=== PATIENT | female | born 1945 | race Caucasian/White ===

== ENCOUNTER → 2019-03-14 | Outpatient (CLI) | payer MEDICARE | END | disposition home or self-care (01) | LOC: CFH 08:43 | PROVIDERS: ATTEND Internal Medicine Cardiovascular Disease | DX: I08.1 Rheumatic disorders of both mitral and tricuspid valves (principal); E78.5 Hyperlipidemia, unspecified; Z86.73 Personal history of transient ischemic attack (TIA), and cerebral infarction without residual deficits | CPT/HCPCS: 93306 ==

== ENCOUNTER → 2020-07-29 | Outpatient (CLI) | payer MEDICARE | END | disposition home or self-care (01) | LOC: CFH 11:00 | PROVIDERS: ATTEND Nurse Practitioner | DX: D45 Polycythemia vera (principal) | CPT/HCPCS: 71046 ==

== ENCOUNTER 2020-09-21 07:06 | Inpatient (IN) | payer MEDICARE ==
[~2020-09-21] VITALS: Ht 170.2 cm; Wt 91.3 kg
--- NOTE | 2020-09-21 07:15 | NUR ---
PT BIBA FROM THE [facility] FOR C/O N/V WHEN SHE BOARDED THE PLANE. PT ALSO C/O SOB/ EPIGASTRIC PAIN THAT IS ACHING. PT STATES SHE WAS BOARDING THE PLANE TO [place] TO VISIT A FRIEND WHEN SHE STARTED TO FEEL NAUSEOUS AND VOMITING WITH EPIGASTRIC PAIN AND COULD NOT WALK. PT STATES SHE WAS IN [place] 1 WEEK AGO FOR A MONTH AND HAD A NEGATIVE COVID TEST. PT RECEIVED 4MG [employer]. PT CHANGED INTO GOWN, MONITORS IN PLACE. CALL LIGHT WITHIN REACH
--- NOTE | 2020-09-21 07:24 | NUR ---
PA AT BS FOR EVAL
[2020-09-21] MEDS ORDERED: ONDANSETRON 2MG/ML, 2ML ONE (07:29)
[2020-09-21] MEDS ORDERED: MORPHINE SULFATE 4 MG/ML, 1ML ONE (07:29)
[2020-09-21] MEDS ORDERED: ASPIRIN 81 MG TABLET CHEW ONE (07:29)
[2020-09-21] MEDS ORDERED: ONDANSETRON 2MG/ML, 2ML IVPush ONE (07:30)
[2020-09-21] MEDS ORDERED: ASPIRIN 81 MG TABLET CHEW PO ONE (07:30)
[2020-09-21] MEDS ORDERED: SODIUM CHLORIDE 0.9% 1,000ML IVBOLUS ONE (07:30)
--- NOTE | 2020-09-21 07:32 | NUR ---
XRAY AT BS
[2020-09-21] MEDS: MORPHINE SULFATE 4 MG/ML, 1ML IVPush PRN ×2 (07:33→20:15)
[2020-09-21] MEDS ORDERED: MAALOX/HYOSCYAMINE/LIDOCAINE 45 ML BTL ONE (07:58)
[2020-09-21] MEDS ORDERED: MAALOX/HYOSCYAMINE/LIDOCAINE 45 ML BTL PO ONE (08:00)
[2020-09-21] MEDS ORDERED: PLEASE ENTER ALLERGIES MC SCH (08:00)
[2020-09-21 08:04] LABS: BASOPHILS % (AUTO) 0 % (0-1); EOSINOPHILS % (AUTO) 4 % (1-7); LYMPHOCYTES % (AUTO) 21 % (22-44); MEAN CORPUSCULAR HEMOGLOBIN 30.8 pg (27.0-34.8); MEAN CORPUSCULAR HGB CONC 34.8 g/dL (32.4-35.8); MEAN PLATELET VOLUME 8.3 fL (7.4-10.4); MONOCYTES % (AUTO) 5 % (2-9); NEUTROPHILS % (AUTO) 70 % (42-75); PLATELET COUNT 283 x10^3/uL (130-400); RED BLOOD COUNT 5.64 x10^6/uL (3.82-5.3); RED CELL DISTRIBUTION WIDTH 13.4 % (9.6-15.2)
[2020-09-21 08:14] LABS: ALANINE AMINOTRANSFERASE 25 U/L (12-78); ALBUMIN 3.5 g/dL (3.4-5.0); ANION GAP 6 mmol/L (5-15); CALCIUM 9.2 mg/dL (8.5-10.1); CHLORIDE 111 mmol/L (98-107); CREATININE 0.95 mg/dL (0.55-1.02)
[2020-09-21 08:19] LABS: ALKALINE PHOSPHATASE 151 U/L (45-117); BILIRUBIN,TOTAL 0.5 mg/dL (0.2-1.0); TOTAL PROTEIN 7.4 g/dL (6.4-8.2); TROPONIN I < 0.015 ng/mL (0.000-0.045)
--- NOTE | 2020-09-21 08:40 | NUR ---
Patient is resting comfortably in bed. Bed in lowest, rails engaged, call light on lap. Vital Signs within normal limits. WCTM. PT STATES HER PAIN HAS DECREASED AND IS FEELING "MUCH BETTER"
--- NOTE | 2020-09-21 09:37 | NUR ---
PT TO CT
--- NOTE | 2020-09-21 09:50 | NUR ---
Report received from SHE Najera and suki balbuena. Pt still in CT at this time.
--- NOTE | 2020-09-21 09:55 | NUR ---
REPORT TO SHE CHAUDHRY
--- NOTE | 2020-09-21 10:00 | NUR ---
Pt back to room from CT, states pain is resolved and she is feeling better. Updated to process of care from this point and call light in reach with VSS.
[2020-09-21] MEDS ORDERED: OMNIPAQUE 350 MG/ML, 100ML BOTTLE ONE (10:22)
--- NOTE | 2020-09-21 10:29 | NUR ---
Lab and radiology results reviewed and chart marked for recheck by .
--- NOTE | 2020-09-21 10:54 | NUR ---
Pt assisted off monitor and to restroom and back then placed back onto monitor. Pt aware of chart marked for recheck by MD and awaiting his arrival to discuss findings and plan of care.
--- NOTE | 2020-09-21 11:30 | NUR ---
Pt off O2 since going to restroom with good RA sats maintained.
--- NOTE | 2020-09-21 11:57 | NUR ---
Attempted to call report to floor RN, but she is unable to come to the phone at this time. Message left to call me back KAL for report.
--- NOTE | 2020-09-21 12:17 | NUR ---
Report called to SHE [place] and pt readied for transfer to floor.
[2020-09-21] MEDS ORDERED: VIT1TABL32 PO (12:25)
[2020-09-21] MEDS ORDERED: VENL100T PO (12:25)
[2020-09-21] MEDS ORDERED: ATOR20TA37 PO (12:25)
[2020-09-21] MEDS ORDERED: IRBE150T9 PO (12:25)
[2020-09-21] MEDS ORDERED: IRBE75TA6 PO (12:25)
[2020-09-21] MEDS ORDERED: LEVO25TA2 PO (12:25)
[2020-09-21] MEDS ORDERED: CLOP75TA PO (12:25)
[2020-09-21] MEDS ORDERED: PANT40TA6 PO (12:25)
[2020-09-21 12:46] VITALS: BP 100/66
[2020-09-21] MEDS: ENOXAPARIN 40 MG/0.4 ML SQ SCH ×2 (13:00→13:01)
[2020-09-21] MEDS ORDERED: ONDANSETRON ODT 4 MG PO PRN (13:00)
[2020-09-21] MEDS ORDERED: DOCUSATE 100 MG CAPSULE PO PRN (13:00)
[2020-09-21] MEDS ORDERED: POLYETHYLENE GLYCOL 17 GM PACKET PO PRN (13:00)
[2020-09-21] MEDS ORDERED: ACETAMINOPHEN 325 MG TABLET PO PRN (13:00)
[2020-09-21] MEDS ORDERED: MELATONIN 5 MG TABLET PO PRN (13:00)
[2020-09-21] MEDS ORDERED: LIDODERM 5% PATCH TD PRN (13:00)
[2020-09-21] MEDS: LACTATED RINGERS 1,000 ML IV SCH ×2 (13:02→18:26)
[2020-09-21] MEDS: morphine SULFATE 10 MG/ML, 1ML IVPush PRN (13:12)
[2020-09-21 15:03] VITALS: BP 106/62
[2020-09-21 15:43] LABS: HCT (SEDRATE) 43.6 % (34.6-47.8)
[2020-09-21 16:00] LABS: TROPONIN I < 0.015 ng/mL (0.000-0.045)
[2020-09-21 19:19] VITALS: BP 120/76
[2020-09-21] MEDS: ATORVASTATIN 20 MG TABLET PO SCH (20:15)
[2020-09-22] MEDS: LACTATED RINGERS 1,000 ML IV SCH ×2 (00:32→08:16)
[2020-09-22 01:08] VITALS: BP 122/72
[2020-09-22] MEDS: morphine SULFATE 10 MG/ML, 1ML IVPush PRN (01:55)
[2020-09-22] MEDS: LEVOTHYROXINE 75 MCG TABLET PO SCH (05:56)
[2020-09-22 06:37] VITALS: BP 135/79
[2020-09-22] MEDS: PANTOPRAZOLE 40MG TABLET PO SCH (08:12)
[2020-09-22] MEDS: VENLAFAXINE 75 MG CAP ER PO SCH (08:13)
[2020-09-22] MEDS: CLOPIDOGREL 75 MG TABLET PO SCH (08:13)
[2020-09-22] MEDS ORDERED: PANTOPRAZOLE 40MG TABLET PO SCH (09:00)
[2020-09-22] MEDS ORDERED: OMNIPAQUE 350 MG/ML, 75ML BOTTLE ONE (09:15)
[2020-09-22 09:31] LABS: BASOPHILS % (AUTO) 0 % (0-1); EOSINOPHILS % (AUTO) 12 % (1-7); LYMPHOCYTES % (AUTO) 20 % (22-44); MEAN CORPUSCULAR HEMOGLOBIN 30.2 pg (27.0-34.8); MEAN CORPUSCULAR HGB CONC 33.8 g/dL (32.4-35.8); MEAN PLATELET VOLUME 7.7 fL (7.4-10.4); MONOCYTES % (AUTO) 5 % (2-9); NEUTROPHILS % (AUTO) 63 % (42-75); PLATELET COUNT 231 x10^3/uL (130-400); RED BLOOD COUNT 4.65 x10^6/uL (3.82-5.3); RED CELL DISTRIBUTION WIDTH 13.8 % (9.6-15.2)
[2020-09-22 09:43] LABS: ANION GAP 4 mmol/L (5-15); CHLORIDE 108 mmol/L (98-107); CREATININE 0.68 mg/dL (0.55-1.02)
[2020-09-22 12:21] VITALS: BP 144/80
[2020-09-22] MEDS ORDERED: LACTATED RINGERS 1,000 ML IV SCH (15:30)
[2020-09-22 20:03] VITALS: BP 133/80
[2020-09-22] MEDS: ATORVASTATIN 20 MG TABLET PO SCH (20:07)
[2020-09-22] MEDS: ENOXAPARIN 40 MG/0.4 ML SQ SCH (20:08)
[2020-09-23 00:57] VITALS: BP 130/76
[2020-09-23] MEDS: LEVOTHYROXINE 75 MCG TABLET PO SCH (06:04)
[2020-09-23 06:06] LABS: BASOPHILS % (AUTO) 0 % (0-1); EOSINOPHILS % (AUTO) 15 % (1-7); LYMPHOCYTES % (AUTO) 22 % (22-44); MEAN CORPUSCULAR HEMOGLOBIN 30.5 pg (27.0-34.8); MEAN CORPUSCULAR HGB CONC 34.5 g/dL (32.4-35.8); MEAN PLATELET VOLUME 8.1 fL (7.4-10.4); MONOCYTES % (AUTO) 6 % (2-9); NEUTROPHILS % (AUTO) 56 % (42-75); PLATELET COUNT 230 x10^3/uL (130-400); RED BLOOD COUNT 4.99 x10^6/uL (3.82-5.3); RED CELL DISTRIBUTION WIDTH 13.1 % (9.6-15.2)
[2020-09-23 06:18] LABS: CALCIUM 8.4 mg/dL (8.5-10.1); CREATININE 0.57 mg/dL (0.55-1.02)
[2020-09-23 06:47] LABS: ANION GAP 6 mmol/L (5-15); CHLORIDE 110 mmol/L (98-107)
[2020-09-23 07:15] VITALS: BP 109/66
[2020-09-23] MEDS: PANTOPRAZOLE 40MG TABLET PO SCH (09:04)
[2020-09-23] MEDS: CLOPIDOGREL 75 MG TABLET PO SCH (09:04)
[2020-09-23] MEDS: VENLAFAXINE 75 MG CAP ER PO SCH (09:04)
== END 2020-09-23 12:50 | disposition home or self-care (01) | DRG 440 ==
LOC: ED 08:55 → EDIP 11:07 → SUATTDRO 11:31 → 3N 11:36
PROVIDERS: ADMIT Hospitalist; ATTEND Family Medicine
DX: K85.90 Acute pancreatitis without necrosis or infection, unspecified (principal); E03.9 Hypothyroidism, unspecified; E78.5 Hyperlipidemia, unspecified; E87.5 Hyperkalemia; F32.9 Major depressive disorder, single episode, unspecified; I10 Essential (primary) hypertension; K21.9 Gastro-esophageal reflux disease without esophagitis; Z86.73 Personal history of transient ischemic attack (TIA), and cerebral infarction without residual deficits; M51.36 Other intervertebral disc degeneration, lumbar region
CPT/HCPCS: 36415; 71045; 71275; 74177; 80048; 80053; 83690; 84132; 84443; 84478; 84484; 85025; 85379; 85651; 86140; 93005; 93306; 96374; G0378; J1650; J2405; Q0162; Q9967; J2270; J7030; J7120